=== PATIENT | female | born 2000 | race Two or more races ===

== ENCOUNTER 2019-03-25 16:46 | Emergency (ER) | payer BC, MEDICAID ==
[~2019-03-25] VITALS: Ht 165.1 cm; Wt 65.8 kg
--- NOTE | 2019-03-25 17:01 | NUR ---
CAME IN FOR PAIN WHILE URINATING & VAGINAL PAIN X 4 DAYS. TO ER BED 16, HOOKED TO MONITOR, CHANGED TO GOWN, PROVIDED W WARM BLANKET, AWAITING MD CASTREJON.
--- NOTE | 2019-03-25 17:16 | NUR ---
DR CARRANZA AT BEDSIDE
[2019-03-25] MEDS ORDERED: ACETAMINOPHEN 325 MG TABLET PO ONE (17:30)
[2019-03-25 17:36] LABS: APPEARANCE,URINE Clear (CLEAR); BILIRUBIN,URINE Negative (NEGATIVE); BLOOD, URINE Large Ery/uL (NEGATIVE); COLOR,URINE Yellow (YELLOW); KETONES,URINE Negative (NEGATIVE); LEUKOCYTE ESTERASE ,URINE Moderate (NEGATIVE); NITRITE, URINE Negative (NEGATIVE); PROTEIN,URINE 30 mg/dl (NEGATIVE); UGLUCOSE Negative (NEGATIVE)
[2019-03-25] MEDS ORDERED: ACETAMINOPHEN 325 MG TABLET ONE (17:41)
[2019-03-25 17:45] LABS: PH,URINE >9.0 (5.0-8.0)
[2019-03-25 17:47] LABS: BACTERIA,URINE Moderate /HPF (None Seen); SQUAMOUS EPITHELIAL CELL,UR Moderate /HPF (None Seen)
--- NOTE | 2019-03-25 18:22 | NUR ---
CHAPERONED DR CARRANZA WHILE DOING PELVIC EXAM
--- NOTE | 2019-03-25 18:28 | NUR ---
SENT GC/CHLAMYDIA SWAB TO LAB
[2019-03-25] MEDS ORDERED: CEFTRIAXONE 500 MG VIAL IM ONE (18:30)
[2019-03-25] MEDS ORDERED: CEFTRIAXONE 500 MG VIAL ONE (18:32)
[2019-03-25] MEDS ORDERED: LIDOCAINE /MPF 1% VIAL 5 ML VIAL ONE (18:33)
--- NOTE | 2019-03-25 18:50 | NUR ---
CARDROOM PLASTIC CARD GRADER AT BEDSIDE
--- NOTE | 2019-03-25 19:33 | NUR ---
REPORT GIVEN TO JIMMY GIVENS FOR NICOLE
--- NOTE | 2019-03-25 19:37 | NUR ---
Patient discharged to home in stable condition. Written and verbal after care instructions given. Patient verbalizes understanding of instruction.
[2019-03-25 19:44] VITALS: BP 129/77
== END 2019-03-25 19:55 | disposition home or self-care (01) ==
LOC: ER 16:48
DX: N73.9 Female pelvic inflammatory disease, unspecified (principal); N39.0 Urinary tract infection, site not specified; J45.909 Unspecified asthma, uncomplicated; F17.200 Nicotine dependence, unspecified, uncomplicated
CPT/HCPCS: 76856; 81001; 84703; 87077; 87086; 87110; 87186; 87491; 87591; 96372; 99284; J0696; J3490; 81000-TC

== ENCOUNTER → 2019-07-10 | Outpatient (CLI) | payer BC | END | disposition home or self-care (01) | LOC: RAD 15:30 | PROVIDERS: ATTEND Family Medicine | DX: M54.5 Low back pain (principal) | CPT/HCPCS: 72100-TC ==